=== PATIENT | male | born 1965 | race Caucasian/White ===

== ENCOUNTER 2018-01-20 16:02 | Emergency (ER) | payer BC, SELFPAY ==
[2018-01-20 16:08] VITALS: BP 134/78; PULSE 78; RESP 18; TEMP 37; O2SAT 97
--- NOTE | 2018-01-20 16:28 | W.ED.GENAD ---
Discharge Plan Disposition Patient Disposition: HOME Condition: Good Discharge Details Chief Complaint: Laceration Clinical Impression: Dog bite of left lower leg Reason For Visit: DOG BITE Primary Care Provider: JOHNY,LOCAL ED Provider: Quinn Dyer Home Meds and New Rx's Prescriptions: New amoxicillin-pot clavulanate [Augmentin] 875-125 mg tablet 1 tab PO BID Qty: 10 RF: 0 Discharge Instructions Instructions: Animal Bite (ED) Additional Instructions: Watch for any signs of infection and return immediately if these occur otherwise follow-up with your primary care provider as needed for reassessment take antibiotics until completely gone Referrals: Primary Care Provider [Outside] (As needed for reassessment) Discharge Data Discharge Date/Time-TO BE ENTERED AT DEPARTURE: 01/20/18 16:47 Medical Decision Making MDM Narrative Medical decision making narrative: Patient presenting to the emergency department status post dog bite. Patient has superficial abrasions to the left lower lateral leg that are nonbleeding and appears somewhat superficial. staffing analyst informed to clean the wounds and patient was updated on tetanus as he is visiting the area and unsure of his last tetanus but feels that it may have been more than 10 years ago or around that time. Given animal bite patient placed on Augmentin twice daily for 5 days and informed to return for any new or worsening symptoms. After discussion of diagnosis and plan of care patient states no further needs, questions, or concerns this time. HPI - General Adult General Date/Time Provider Initiated Documentation: 01/20/18 16:25. History of Present Illness 52 year old M presents to the emergency department with the chief complaint of Dog bite left leg, described as mild, with intensity rated at 4. Quality is described as aching, and is localized to the left and lower extremity. Patient reports no radiation. Patient started experiencing this minute(s) (30) and it has been constant. No relieving factors improve symptom(s), No exacerbating factors reported . Patient notes no other symptoms.. Patient did receive the following treatments prior to arrival, none Related Data Previous Rx's Medication Instructions Recorded amoxicillin-pot clavulanate 1 tab PO BID #10 tab 01/20/18 [Augmentin] Allergies Allergy/AdvReac Type Severity Reaction Status Date / Time No Known Allergies Allergy Unverified 01/20/18 16:08 General Stated Complaint: Laceration TUYET: 4 Review of Systems Constitutional Denies body ache(s) Cardiovascular Denies syncope Respiratory Reports system reviewed and no additional complaints, except as docu Musculoskeletal Denies abnormal gait, Denies joint swelling, Denies muscle weakness and Denies numbness Integumentary/Breasts Reports as per HPI Neurologic Denies abnormal gait, Denies syncope and Denies numbness PFS Social History Smoking/Tobacco Use Status: Never alcohol intake: current alcohol intake frequency: 0-2 drinks per day Alcohol type: beer Exam Const General: cooperative, healthy appearing, no acute distress, well developed, well groomed and does not appear intoxicated Orientation: alert, awake and oriented x3 Resp Effort & Inspection: normal respiratory effort and able to speak in complete sentences Neuro General: alert, awake, oriented x3 and moves all extremities Extrem General: normal exam except as noted Left lower extremity: lower leg Details: abrasion (Patient with multiple abrasions to the lateral aspect of the left lower leg with some ecchymosis surrounding the area) Course Vital Signs Temperature 37.0 C 01/20/18 16:08 Pulse 78 01/20/18 16:08 Respiratory Rate 18 01/20/18 16:08 Blood Pressure 134/78 01/20/18 16:08 Pulse Oximetry 97 01/20/18 16:08 Temperature 37.0 C 01/20/18 16:08 Pulse 78 01/20/18 16:08 Respiratory Rate 18 01/20/18 16:08 Blood Pressure 134/78 01/20/18 16:08 Pulse Oximetry 97 01/20/18 16:08
[2018-01-20] MEDS: Amoxicillin 875/Clav. 125 TAB PO (16:34)
--- NOTE | 2018-01-20 16:37 | ED.GENADUL_ITS ---
Discharge Plan Disposition Patient Disposition: HOME Condition: Good Discharge Details Chief Complaint: Laceration Clinical Impression: Dog bite of left lower leg Reason For Visit: DOG BITE Primary Care Provider: JOHNY,LOCAL ED Provider: Quinn Dyer Home Meds and New Rx's Prescriptions: New amoxicillin-pot clavulanate [Augmentin] 875-125 mg tablet 1 tab PO BID Qty: 10 RF: 0 Discharge Instructions Instructions: Animal Bite (ED) Additional Instructions: Watch for any signs of infection and return immediately if these occur otherwise follow-up with your primary care provider as needed for reassessment take antibiotics until completely gone Referrals: Primary Care Provider [Outside] (As needed for reassessment) Discharge Data Discharge Date/Time-TO BE ENTERED AT DEPARTURE: 01/20/18 16:47 Medical Decision Making MDM Narrative Medical decision making narrative: Patient presenting to the emergency department status post dog bite. Patient has superficial abrasions to the left lower lateral leg that are nonbleeding and appears somewhat superficial. staff mechanical engineer informed to clean the wounds and patient was updated on tetanus as he is visiting the area and unsure of his last tetanus but feels that it may have been more than 10 years ago or around that time. Given animal bite patient placed on Augmentin twice daily for 5 days and informed to return for any new or worsening symptoms. After discussion of diagnosis and plan of care patient states no further needs, questions, or concerns this time. HPI - General Adult General Date/Time Provider Initiated Documentation: 01/20/18 16:25 . History of Present Illness 52 year old M presents to the emergency department with the chief complaint of Dog bite left leg, described as mild, with intensity rated at 4. Quality is described as aching, and is localized to the left and lower extremity. Patient reports no radiation. Patient started experiencing this minute(s) (30 ) and it has been constant. No relieving factors improve symptom(s), No exacerbating factors reported . Patient notes no other symptoms.. Patient did receive the following treatments prior to arrival, none Related Data Previous Rx's Medication Instructions Recorded amoxicillin-pot clavulanate 1 tab PO BID #10 tab 01/20/18 [Augmentin] Allergies Allergy/AdvReac Type Severity Reaction Status Date / Time No Known Allergies Allergy Unverified 01/20/18 16:08 General Stated Complaint: Laceration TUYET: 4 Review of Systems Constitutional Denies body ache(s) Cardiovascular Denies syncope Respiratory Reports system reviewed and no additional complaints, except as docu Musculoskeletal Denies abnormal gait, Denies joint swelling, Denies muscle weakness and Denies numbness Integumentary/Breasts Reports as per HPI Neurologic Denies abnormal gait, Denies syncope and Denies numbness PFS Social History Smoking/Tobacco Use Status: Never alcohol intake: current alcohol intake frequency: 0-2 drinks per day Alcohol type: beer Exam Const General: cooperative, healthy appearing, no acute distress, well developed, well groomed and does not appear intoxicated Orientation: alert, awake and oriented x3 Resp Effort & Inspection: normal respiratory effort and able to speak in complete sentences Neuro General: alert, awake, oriented x3 and moves all extremities Extrem General: normal exam except as noted Left lower extremity: lower leg Details: abrasion (Patient with multiple abrasions to the lateral aspect of the left lower leg with some ecchymosis surrounding the area) Course Vital Signs Temperature 37.0 C 01/20/18 16:08 Pulse 78 01/20/18 16:08 Respiratory Rate 18 01/20/18 16:08 Blood Pressure 134/78 01/20/18 16:08 Pulse Oximetry 97 01/20/18 16:08 Temperature 37.0 C 01/20/18 16:08 Pulse 78 01/20/18 16:08 Respiratory Rate 18 01/20/18 16:08 Blood Pressure 134/78 01/20/18 16:08 Pulse Oximetry 97 01/20/18 16:08
--- NOTE | 2018-01-20 19:02 | NUR.NOTE ---
Nursing Note: animal bite reported to Ty Mendez [facility] Officer by telephone, , form faxed to [phone], Mr. Mendez requested that his phone numbers be given to patient to call him back on 01/21/18 to be updated on progress of animal information as patient is from out of the area and was unable to get very much information on the animal and it's health records.
--- NOTE | 2018-01-21 11:52 | NUR.NOTE ---
Nursing Note: Spoke with Austin correa; Ty Mendez in regards to the dog bite. Cassi Reddy; animal therapist will follow up on the animal bite. Ty Mendez will contact the patient to let him know that he will be receiving a call from her. Tiny Roman.
== END 2018-01-20 16:47 | disposition home or self-care (01) ==
PROVIDERS: Emergency Provider Nurse Practitioner Family
DX: S81.852A Open bite, left lower leg, initial encounter (principal); W54.0XXA Bitten by dog, initial encounter
CPT/HCPCS: 90471; 99283